=== PATIENT | male | born 1995 | race Caucasian/White ===

== ENCOUNTER 2016-06-14 16:07 | Inpatient (IN) | payer OTHER ==
[~2016-06-14] VITALS: Ht 182.9 cm; Wt 85.5 kg
[2016-06-14] MEDS ORDERED: GI COCKTAIL PO STA (16:35)
[2016-06-14] MEDS ORDERED: SODIUM CHLORIDE 0.9% 1000ML 1,000 ML IV STA (16:35)
[2016-06-14 17:02] LABS: BASO % 0.1 %; BASO ABS # 0.01 K/uL (0-0.2); COMPLETE YES; EOS % 3.7 %; HEMATOCRIT 48.3 % (42-52); IG% 0.3 %; LYMPH % 4.7 %; LYMPH ABS # 0.54 K/uL (1.2-3.4); MEAN CELL VOLUME 85.8 fL (80-100); MEAN CORPUSCULAR HEMOGLOBIN 31.8 pg (25-34); MEAN CORPUSCULAR HGB CONC 37.1 g/dl (32-36); MONO % 5.6 %; NEUT % 85.6 %; PLATELET COUNT 203 K/uL (130-400); RED BLOOD COUNT 5.63 M/uL (4.7-6.1); WHITE BLOOD COUNT 11.52 K/uL (4.8-10.8)
[2016-06-14] MEDS ORDERED: ALUMINUM/MAGNESIUM SUSP 30 ML UDC ONE (17:06)
[2016-06-14] MEDS ORDERED: LIDOCAINE HCL 2% VISC SOLN 20 ML UDC ONE (17:07)
[2016-06-14 17:20] LABS: BUN/CREATININE RATIO 19.5 (10-20); CALCIUM 9.4 mg/dl (8.5-10.1); CREATININE 1.1 mg/dl (0.60-1.40); POTASSIUM 3.8 mmol/L (3.5-5.1)
[2016-06-14 17:23] LABS: ALB/GLOB RATIO 1.5 (0.9-2)
[2016-06-14 17:41] LABS: URINE APPEARANCE CLEAR (CLEAR); URINE BILIRUBIN NEG (NEG); URINE COLOR DK YELLOW; URINE NITRITE NEG (NEG); URINE SPECIFIC GRAVITY 1.035 (1.000-1.030); UROBILINOGEN NEG (NEG); ZZUR CULT IF INDIC CLEAN CATCH NO
[2016-06-14 17:43] LABS: MANUAL MICROSCOPIC REQUIRED? NO; REVIEW REQ? NO
--- NOTE | 2016-06-14 18:17 | DIAGNOSTIC IMAGING REPORT ---
CHEST AND ABDOMEN 2 VIEWS HISTORY: epigastric abdominal pain COMPARISON: FINDINGS: The lungs are clear. The cardiomediastinal silhouette is within normal limits. There is no pneumoperitoneum or pneumatosis. Suture material within the right lower quadrant. Mildly dilated air and fluid-filled loop of small bowel within the midabdomen. This contains a few small fluid levels. Multiple small fluid level seen within the colon. No pathologic calcifications. IMPRESSION: A single mildly dilated loop of small bowel within the midabdomen. This contains a fluid/fluid level. There are multiple small fluid levels seen throughout the colon. These findings can be seen in the setting of a gastroenteritis or partial small bowel obstruction. Electronically signed by: Emeterio Phillip M.D. 06/14/2016 6:15 PM Dictated Date/Time: 06/14/2016 6:13 PM
[2016-06-14] MEDS ORDERED: OPTIRAY 320 IV PRN (18:45)
--- NOTE | 2016-06-14 19:49 | DIAGNOSTIC IMAGING REPORT ---
ABDOMEN AND PELVIS CT WITH IV CONTRAST CT DOSE: 352.50 mGy.cm HISTORY: Generalized abdominal pain, air fluid levels on xray, r/o obstruction TECHNIQUE: Multiaxial CT images of the abdomen and pelvis were performed following the use of intravenous contrast. COMPARISON STUDY: Chest and abdomen series 06/14/2016. FINDINGS: The lung bases are clear. No pneumoperitoneum. No pneumatosis. No fractures within the visualized osseous structures. The liver, gallbladder, pancreas, adrenal glands, and left kidney are unremarkable. There is a 5 mm hypodense lesion within the upper pole the right kidney. This is too small to characterize but favors a cyst. No hydronephrosis. No retroperitoneal lymphadenopathy. The spleen is top normal in size measuring 12.5 cm in length. The bladder is unremarkable. No pelvic free fluid. Suture material at the base of the cecum suggesting prior appendectomy. Multiple mildly dilated air and fluid-filled loop of proximal to mid small bowel. The distal small bowel appears to be decompressed. However, there is no clear transition point identified at this time. No bowel wall thickening. The colon is partially fluid-filled. Distended proximal small bowel loops measure up to 3.4 cm diameter. IMPRESSION: 1. Multiple mildly dilated air and fluid-filled loops of proximal to mid small bowel. The distal small bowel is decompressed. There is no clear transition point at this time. Therefore, this could represent a partial small bowel obstruction versus a gastroenteritis. The stomach is also mildly distended and fluid-filled. Consider follow-up CT or serial KUBs to assess for a developing small bowel obstruction. 2. Prior appendectomy. 3. The spleen is top normal in size. Electronically signed by: Emeterio Phillip M.D. 06/14/2016 7:47 PM Dictated Date/Time: 06/14/2016 7:38 PM
[2016-06-14] MEDS ORDERED: MoRPHine SULFATE 2 MG/ML CARP IV PRN (20:30)
[2016-06-14] MEDS ORDERED: ONDANSETRON INJ 2 MG/ML 2 ML VIAL IV PRN (20:30)
--- NOTE | 2016-06-14 20:37 | History and Physical ---
History & Physical Date & Time of Service: Jun 14, 2016 at 20:32 Chief Complaint: Abdominal Pain Primary Care Physician: No Doctor, Assigned History of Present Illness Source: patient 20 y/o M w/Hx appendectomy only - developed abdominal pain and nausea over the past [address] abdomen was obtained in the ER and is suspicious for a partial SBO. At present he denies constipation, diarrhea or vomiting. He denies fevers and denies previous bowel obstructions. He was able top eat a small amount of yogurt AM but had a meal last > 24hrs prior. Past Medical/Surgical History Appendectomy Family History Both parents alive and well Social History Does not smoke - drinks 2xwk - civil engineering student at [employer] Smoking Status: Never Smoker Alcohol Use: socially Marital Status: single Occupational Status: student Allergies Coded Allergies: No Known Allergies (Unverified , 06/14/16) Home Medications No Active Prescriptions or Reported Meds Review of Systems Constitutional: No chills, No fever, No sweats Eyes: No eye pain, No worsening of vision ENT: No hearing loss, No nasal symptoms, No unusual epistaxis Respiratory: No cough, No sputum, No wheezing Cardiovascular: No PND, No chest pain, No orthopnea Abdomen: + nausea, + pain, No vomiting Musculoskeletal: No joint pain, No muscle pain Genitourinary - Male: No dysuria, No hematuria Neurologic: No memory loss, No paralysis, No weakness Psychiatric: No depression symptoms Endocrine: No fatigue Hematologic / Lymphatic: No abnormal bleeding/bruising Integumentary: No rash Allergic / Immunologic: No environmental allergies Physical Exam Vital Signs Date Time Temp Pulse Resp B/P Pulse Ox O2 Delivery O2 Flow Rate FiO2 06/14/16 19:44 74 16 131/78 99 06/14/16 17:55 74 16 121/67 97 06/14/16 16:23 141/80 06/14/16 16:17 36.7 118 18 96 Room Air General Appearance: WD/WN, no apparent distress Head: normocephalic, atraumatic Eyes: normal inspection, EOMI ENT: normal ENT inspection, hearing grossly normal, pharynx normal Neck: supple, no JVD Respiratory/Chest: chest non-tender, no accessory muscle use Cardiovascular: regular rate, rhythm, no edema, no gallop Abdomen/GI: + pertinent finding (Mild diffuse tenderness - hypoactive BS) Back: normal inspection Extremities/Musculoskelatal: normal inspection, no calf tenderness, normal capillary refill, no pedal edema, normal range of motion Neurologic/Psych: electrophysiology tech II-XII nml as tested, no motor/sensory deficits, alert, normal mood/affect, normal reflexes, oriented x 3 Skin: normal color, warm/dry, no rash Lymphatic: no adenopathy Diagnostics Laboratory Results Results Past 24 Hours Test 06/14/16 00:00 06/14/16 16:40 Range/Units Urine Color DK YELLOW Urine Appearance CLEAR CLEAR Urine pH 6.0 4.5-7.5 Urine Specific [place] 1.035 1.000-1.030 Urine Protein NEG NEG Urine Glucose (UA) NEG NEG Urine Ketones 2+ NEG Urine Occult Blood NEG NEG Urine Nitrite NEG NEG Urine Bilirubin NEG NEG Urine Urobilinogen NEG NEG Urine Leukocyte Esterase NEG NEG White Blood Count 11.52 4.8-10.8 K/uL Red Blood Count 5.63 4.7-6.1 M/uL Hemoglobin 17.9 14.0-18.0 g/dL Hematocrit 48.3 42-52 % Mean Corpuscular Volume 85.8 80-100 fL Mean Corpuscular Hemoglobin 31.8 25-34 pg Mean Corpuscular Hemoglobin Concent 37.1 32-36 g/dl Platelet Count 203 130-400 K/uL Mean Platelet Volume 9.0 7.4-10.4 fL Neutrophils (%) (Auto) 85.6 % Lymphocytes (%) (Auto) 4.7 % Monocytes (%) (Auto) 5.6 % Eosinophils (%) (Auto) 3.7 % Basophils (%) (Auto) 0.1 % Neutrophils # (Auto) 9.87 1.4-6.5 K/uL Lymphocytes # (Auto) 0.54 1.2-3.4 K/uL Monocytes # (Auto) 0.64 0.11-0.59 K/uL Eosinophils # (Auto) 0.43 0-0.5 K/uL Basophils # (Auto) 0.01 0-0.2 K/uL RDW Standard Deviation 38.4 36.4-46.3 fL RDW Coefficient of Variation 12.2 11.5-14.5 % Immature Granulocyte % (Auto) 0.3 % Immature Granulocyte # (Auto) 0.03 0.00-0.02 K/uL Sodium Level 138 136-145 mmol/L Potassium Level 3.8 3.5-5.1 mmol/L Chloride Level 104 98-107 mmol/L Carbon Dioxide Level 23 21-32 mmol/L Anion Gap 11.0 3-11 mmol/L Blood Urea Nitrogen 22 7-18 mg/dl Creatinine 1.10 0.60-1.40 mg/dl Est Creatinine Clear Calc Drug Dose 116.6 ml/min Estimated GFR () 110.6 Estimated GFR (Non- 95.5 BUN/Creatinine Ratio 19.5 10-20 Random Glucose 88 70-99 mg/dl Calcium Level 9.4 8.5-10.1 mg/dl Total Bilirubin 1.5 0.2-1 mg/dl Aspartate Amino Transf (AST/SGOT) 27 15-37 U/L Alanine Aminotransferase (ALT/SGPT) 42 12-78 U/L Alkaline Phosphatase 29 45-117 U/L Total Protein 7.6 6.4-8.2 gm/dl Albumin 4.5 3.4-5.0 gm/dl Globulin 3.1 2.5-4.0 gm/dl Albumin/Globulin Ratio 1.5 0.9-2 Lipase 143 73-393 U/L Diagnostic Radiology CT abdomen 1. Multiple mildly dilated air and fluid-filled loops of proximal to mid small bowel. The distal small bowel is decompressed. There is no clear transition point at this time. Therefore, this could represent a partial small bowel obstruction versus a gastroenteritis. The stomach is also mildly distended and fluid-filled. 2. Prior appendectomy. 3. The spleen is top normal in size. Impression Assessment and Plan 20 y/o M w/Hx appendectomy only - developed abdominal pain and nausea over the past [address] abdomen was obtained in the ER and is suspicious for a partial SBO. At present he denies constipation, diarrhea or vomiting. He denies fevers and denies previous bowel obstructions. Pt will be observed overnight - kept NPO and provided with aggressive IVF. We will obtain a KUB for f/u AM and consider an NGT with worsening. Surgery will be consulted AM. Heparin prophylaxis - full code Total time for this admit including review of records, labs, imaging - discussion with pt and ER MD 25 min Level of Care Med/Surg Resuscitation Status FULL RESUSCITATION VTE Prophylaxis VTE Risk Assessment Done? Y/N: Yes Risk Level: Low Given or contraindicated: Unfractionated heparin SQ
[2016-06-14 21:45] VITALS: BP 119/81; PULSE 79; TEMP 37.4; O2SAT 99
[2016-06-14 21:50] VITALS: BP 119/81; PULSE 79; TEMP 37.4; O2SAT 99; Ht 182.9 cm; Wt 85.5 kg
[2016-06-14 22:10] VITALS: O2SAT 99
[2016-06-14 22:25] LABS: PROTHROMBIN TIME (PATIENT) 10.3 SECONDS (9.0-12.0)
[2016-06-14] MEDS: D5NSS + 20MEQ KCL 1,000 ML IV SCH (22:46)
[2016-06-14 23:17] VITALS: BP 119/62; PULSE 85; TEMP 37.5; O2SAT 96
--- NOTE | 2016-06-15 00:01 | EMERGENCY ROOM VISIT NOTE ---
History First contact with patient: 16:20 Chief Complaint: ABDOMINAL PAIN Stated Complaint: SBO Nursing Triage Summary: Pt c/o mid upper abd pain "sharp" since last night. Denies n/v/d Ibuprofen at 1000 unable to get BP in triage. History of Present Illness The patient is a 20 year old male who presents to the Emergency Room with complaints of abdominal pain which began suddenly last night. The patient reports that the pain woke him up from sleeping last night in the middle of the night. He states that since then, he has had persistent pain in his upper abdomen. He has associated lightheadedness and dizziness. He does report that he has had a decreased appetite and has not been able to eat anything today. He denies nausea/vomiting or changes in bowel movements. He does report that his pain worsens with any eating. He states the pain is sharp and he rates his discomfort an 8/10. He states that the last time he had pain this severe, it was due to his appendix. He reports a personal history of appendectomy any family history of gallbladder disease. He denies any recent diet changes. He took ibuprofen for his discomfort without relief. He denies any fevers/chills, chest pain or shortness of breath. Review of Systems A complete 10-point Review of Systems was discussed with the patient, with pertinent positives and negatives listed in the History of Present Illness. All remaining Review of Systems questions can be considered negative unless otherwise specified. Past Medical/Surgical History Medical Problems: (1) SBO (small bowel obstruction) Social History Smoking Status: Never Smoker Marital Status: single Occupation Status: student Current/Historical Medications No Active Prescriptions or Reported Meds Allergies Coded Allergies: No Known Allergies (Unverified , 06/14/16) Physical Exam Vital Signs Date Time Temp Pulse Resp B/P Pulse Ox O2 Delivery O2 Flow Rate FiO2 06/14/16 19:44 74 16 131/78 99 06/14/16 17:55 74 16 121/67 97 06/14/16 16:23 141/80 06/14/16 16:17 36.7 118 18 96 Room Air Pain Rating (0-10): 0 Physical Exam VITALS: Vitals are noted on the nurse's note and reviewed by myself. Vital signs stable. GENERAL: This is a 20-year-old male, in no acute distress, nondiaphoretic, well- developed well-nourished. SKIN: Capillary reflex less than 2 seconds. HEENT: Normocephalic. PERRLA. EOMI. Nares patent. Mucous membranes moist. Neck is supple without nuchal rigidity. HEART: Regular rate and rhythm without murmurs gallops or rubs. LUNGS: Clear to auscultation bilaterally without wheezes, rales or rhonchi. ABDOMEN: Positive bowel sounds x 4. Moderate tenderness to the epigastric region and. Umbilical region. Chun sign negative. No guarding or rebound tenderness. NEURO: Patient was alert and oriented to person place and time. Medical Decision & Procedures ER Provider Diagnostic Interpretation: CHEST AND ABDOMEN 2 VIEWS FINDINGS: The lungs are clear. The cardiomediastinal silhouette is within normal limits. There is no pneumoperitoneum or pneumatosis. Suture material within the right lower quadrant. Mildly dilated air and fluid-filled loop of small bowel within the midabdomen. This contains a few small fluid levels. Multiple small fluid level seen within the colon. No pathologic calcifications. IMPRESSION: A single mildly dilated loop of small bowel within the midabdomen. This contains a fluid/fluid level. There are multiple small fluid levels seen throughout the colon. These findings can be seen in the setting of a gastroenteritis or partial small bowel obstruction. ABDOMEN AND PELVIS CT WITH IV CONTRAST FINDINGS: The lung bases are clear. No pneumoperitoneum. No pneumatosis. No fractures within the visualized osseous structures. The liver, gallbladder, pancreas, adrenal glands, and left kidney are unremarkable. There is a 5 mm hypodense lesion within the upper pole the right kidney. This is too small to characterize but favors a cyst. No hydronephrosis. No retroperitoneal lymphadenopathy. The spleen is top normal in size measuring 12.5 cm in length. The bladder is unremarkable. No pelvic free fluid. Suture material at the base of the cecum suggesting prior appendectomy. Multiple mildly dilated air and fluid-filled loop of proximal to mid small bowel. The distal small bowel appears to be decompressed. However, there is no clear transition point identified at this time. No bowel wall thickening. The colon is partially fluid-filled. Distended proximal small bowel loops measure up to 3.4 cm diameter. IMPRESSION: 1. Multiple mildly dilated air and fluid-filled loops of proximal to mid small bowel. The distal small bowel is decompressed. There is no clear transition point at this time. Therefore, this could represent a partial small bowel obstruction versus a gastroenteritis. The stomach is also mildly distended and fluid-filled. Consider follow-up CT or serial KUBs to assess for a developing small bowel obstruction. 2. Prior appendectomy. 3. The spleen is top normal in size. Laboratory Results 06/14/16 16:40 Red Blood Count 5.63, Mean Corpuscular Volume 85.8, Mean Corpuscular Hemoglobin 31.8, Mean Corpuscular Hemoglobin Concent 37.1, Mean Platelet Volume 9.0, Neutrophils (%) (Auto) 85.6, Lymphocytes (%) (Auto) 4.7, Monocytes (%) (Auto) 5.6, Eosinophils (%) (Auto) 3.7, Basophils (%) (Auto) 0.1, Neutrophils # (Auto) 9.87, Lymphocytes # (Auto) 0.54, Monocytes # (Auto) 0.64, Eosinophils # (Auto) 0.43, Basophils # (Auto) 0.01 06/14/16 16:40 Test 06/14/16 00:00 06/14/16 16:40 Urine Color DK YELLOW Urine Appearance CLEAR (CLEAR) Urine pH 6.0 (4.5-7.5) Urine Specific [place] 1.035 (1.000-1.030) Urine Protein NEG (NEG) Urine Glucose (UA) NEG (NEG) Urine Ketones 2+ (NEG) Urine Occult Blood NEG (NEG) Urine Nitrite NEG (NEG) Urine Bilirubin NEG (NEG) Urine Urobilinogen NEG (NEG) Urine Leukocyte Esterase NEG (NEG) White Blood Count 11.52 K/uL (4.8-10.8) Red Blood Count 5.63 M/uL (4.7-6.1) Hemoglobin 17.9 g/dL (14.0-18.0) Hematocrit 48.3 % (42-52) Mean Corpuscular Volume 85.8 fL (80-100) Mean Corpuscular Hemoglobin 31.8 pg (25-34) Mean Corpuscular Hemoglobin Concent 37.1 g/dl (32-36) Platelet Count 203 K/uL (130-400) Mean Platelet Volume 9.0 fL (7.4-10.4) Neutrophils (%) (Auto) 85.6 % Lymphocytes (%) (Auto) 4.7 % Monocytes (%) (Auto) 5.6 % Eosinophils (%) (Auto) 3.7 % Basophils (%) (Auto) 0.1 % Neutrophils # (Auto) 9.87 K/uL (1.4-6.5) Lymphocytes # (Auto) 0.54 K/uL (1.2-3.4) Monocytes # (Auto) 0.64 K/uL (0.11-0.59) Eosinophils # (Auto) 0.43 K/uL (0-0.5) Basophils # (Auto) 0.01 K/uL (0-0.2) RDW Standard Deviation 38.4 fL (36.4-46.3) RDW Coefficient of Variation 12.2 % (11.5-14.5) Immature Granulocyte % (Auto) 0.3 % Immature Granulocyte # (Auto) 0.03 K/uL (0.00-0.02) Prothrombin Time 10.3 SECONDS (9.0-12.0) Prothromb Time International Ratio 1.0 (0.9-1.1) Activated Partial Thromboplast Time 25.9 SECONDS (21.0-31.0) Partial Thromboplastin Ratio 1.0 Anion Gap 11.0 mmol/L (3-11) Est Creatinine Clear Calc Drug Dose 116.6 ml/min Estimated GFR () 110.6 Estimated GFR (Non- 95.5 BUN/Creatinine Ratio 19.5 (10-20) Calcium Level 9.4 mg/dl (8.5-10.1) Total Bilirubin 1.5 mg/dl (0.2-1) Aspartate Amino Transf (AST/SGOT) 27 U/L (15-37) Alanine Aminotransferase (ALT/SGPT) 42 U/L (12-78) Alkaline Phosphatase 29 U/L (45-117) Total Protein 7.6 gm/dl (6.4-8.2) Albumin 4.5 gm/dl (3.4-5.0) Globulin 3.1 gm/dl (2.5-4.0) Albumin/Globulin Ratio 1.5 (0.9-2) Lipase 143 U/L (73-393) Medications Administered Medications (Trade) Dose Ordered Sig/Cee Route Start Time Stop Time Status Last Admin Dose Admin Sodium Chloride (Nss 1000ml) 1,000 ml @ 999 mls/hr Q1H1M STAT IV 06/14/16 16:35 06/14/16 17:35 DC 06/14/16 16:35 999 MLS/HR Al Hydroxide/Mg Hydroxide (Maalox Susp) 30 ml STK-MED ONCE .ROUTE 06/14/16 17:06 06/14/16 17:08 DC 06/14/16 17:12 30 ML Lidocaine HCl (Viscous Lidocaine 2% Soln) 20 ml STK-MED ONCE .ROUTE 06/14/16 17:07 06/14/16 17:08 DC 06/14/16 17:12 20 ML Medical Decision Differential diagnosis includes cholecystitis, gastroenteritis, colitis, small bowel obstruction, renal calculus, pyelonephritis, among others. The patient was evaluated as above. Labs were drawn and IV access was obtained. Imaging studies were performed and read by radiology as above. The patient was medicated with 1 L normal saline solution and a GI cocktail. The patient was reassessed multiple times during their stay in the emergency department and remained in stable condition. The patient is a 20-year-old male who presents today complaining of epigastric and padmini-umbilical abdominal pain. Labs revealed a mild leukocytosis. No significant anemia or electrolyte abnormalities. Lipase was not elevated. Urinalysis was not suggestive of infection. Abdominal series was performed and did show evidence of a possible small bowel obstruction. CT was then performed to confirm this diagnosis and again showed evidence of possible small bowel obstruction. I reassessed the patient and he was having continued discomfort. At this time, I do feel that the patient should be admitted for serial examinations and further evaluation of a possible small bowel traction. The patient was agreeable to this. Consultation was made with the hospitalist. The patient's case was reviewed with Dr. Yates, ED attending physician, who agreed with my assessment and treatment plan. Based on the patient's presentation, lab results, and imaging studies, I feel the patient is stable for outpatient treatment. Discharge instructions were reviewed with the patient. The patient verbalized understanding of my assessment and treatment plan and was discharged home in good condition. Impression Primary Impression: Small bowel obstruction Departure Information Dispostion Still a Patient Condition FAIR Prescriptions No Active Prescriptions or Reported Meds Referrals No Doctor, Assigned (PCP) Forms HOME CARE DOCUMENTATION FORM, IMPORTANT VISIT INFORMATION Patient Instructions My [facility]
[2016-06-15] MEDS ORDERED: LORAZEPAM INJ 0.5 MG in SYRINGE 0.25 ML IV ONE (00:15)
[2016-06-15] MEDS: D5NSS + 20MEQ KCL 1,000 ML IV SCH ×3 (05:17→22:20)
[2016-06-15] MEDS: HEPARIN SOD 5000 UNIT/0.5 ML CARP SQ SCH ×3 (05:17→22:00)
[2016-06-15 07:32] VITALS: BP 106/68; PULSE 66; TEMP 36.7; O2SAT 99
--- NOTE | 2016-06-15 09:22 | DIAGNOSTIC IMAGING REPORT ---
KUB HISTORY: Small bowel obstruction. Generalized abdominal pain. COMPARISON: Abdomen and pelvis CT 06/14/2016. Abdominal series 06/14/2016. FINDINGS: There are few mildly dilated proximal loops of small bowel within the left upper quadrant. These measure up to 3.6 cm in diameter. The distal small bowel remains gas filled and normal in caliber. There is gas within the nondistended colon and rectum. The stomach is decompressed. The lung bases are clear. No renal calculi. No ureteral calculi. No pneumoperitoneum or pneumatosis. IMPRESSION: Single dilated loop of small bowel to the left upper quadrant. There remains gas and stool throughout the colon/rectum. Again, this could represent a low-grade partial small bowel obstruction versus a gastroenteritis. Electronically signed by: Emeterio Phillip M.D. 06/15/2016 9:20 AM Dictated Date/Time: 06/15/2016 9:18 AM
--- NOTE | 2016-06-15 13:39 | Progress Note ---
Subjective Date of Service: Jun 15, 2016. Subjective Pt evaluation today including: conversation w/ patient, conversation w/ family (mother at bedside), physical exam, chart review, lab review, review of studies (CT abd, x-rays abd ), review of inpatient medication list Pain: epigastric - but improved PO Intake: tolerating sips of clears Voiding: no voiding problems Surprisingly he never had vomiting with this illness. No fevers but had been having chills. +flatus most of this am without any diarrhea. Feels better. Problem List Medical Problems: (1) Small bowel obstruction Status: Acute Review of Systems Constitutional: No chills, No fever Respiratory: + shortness of breath Cardiac: + chest pain Abdomen: + pain, No GI bleeding, No diarrhea, No nausea, No vomiting Objective Vital Signs Date Time Temp Pulse Resp B/P Pulse Ox O2 Delivery O2 Flow Rate FiO2 06/15/16 08:07 Room Air 06/15/16 07:32 36.7 66 14 106/68 99 Room Air 06/14/16 23:51 Room Air 06/14/16 23:17 37.5 85 14 119/62 96 Room Air 06/14/16 22:10 99 Room Air 06/14/16 21:50 37.4 79 16 119/81 99 Room Air 06/14/16 21:45 37.4 79 20 119/81 99 Room Air 06/14/16 21:05 78 128/78 98 06/14/16 19:44 74 16 131/78 99 06/14/16 17:55 74 16 121/67 97 06/14/16 16:23 141/80 06/14/16 16:17 36.7 118 18 96 Room Air Physical Exam General Appearance: no apparent distress ENT: pharynx normal Neck: no JVD Respiratory/Chest: lungs clear, no respiratory distress, no accessory muscle use Cardiovascular: regular rate, rhythm, no gallop, no murmur Abdomen: normal bowel sounds, soft, no organomegaly, + tenderness (epigastric area - mild) Extremities: no pedal edema Laboratory Results Last 24 Hours Test 06/14/16 16:40 White Blood Count 11.52 K/uL Red Blood Count 5.63 M/uL Hemoglobin 17.9 g/dL Hematocrit 48.3 % Mean Corpuscular Volume 85.8 fL Mean Corpuscular Hemoglobin 31.8 pg Mean Corpuscular Hemoglobin Concent 37.1 g/dl Platelet Count 203 K/uL Mean Platelet Volume 9.0 fL Neutrophils (%) (Auto) 85.6 % Lymphocytes (%) (Auto) 4.7 % Monocytes (%) (Auto) 5.6 % Eosinophils (%) (Auto) 3.7 % Basophils (%) (Auto) 0.1 % Neutrophils # (Auto) 9.87 K/uL Lymphocytes # (Auto) 0.54 K/uL Monocytes # (Auto) 0.64 K/uL Eosinophils # (Auto) 0.43 K/uL Basophils # (Auto) 0.01 K/uL RDW Standard Deviation 38.4 fL RDW Coefficient of Variation 12.2 % Immature Granulocyte % (Auto) 0.3 % Immature Granulocyte # (Auto) 0.03 K/uL Prothrombin Time 10.3 SECONDS Prothromb Time International Ratio 1.0 Activated Partial Thromboplast Time 25.9 SECONDS Partial Thromboplastin Ratio 1.0 Sodium Level 138 mmol/L Potassium Level 3.8 mmol/L Chloride Level 104 mmol/L Carbon Dioxide Level 23 mmol/L Anion Gap 11.0 mmol/L Blood Urea Nitrogen 22 mg/dl Creatinine 1.10 mg/dl Est Creatinine Clear Calc Drug Dose 116.6 ml/min Estimated GFR () 110.6 Estimated GFR (Non- 95.5 BUN/Creatinine Ratio 19.5 Random Glucose 88 mg/dl Calcium Level 9.4 mg/dl Total Bilirubin 1.5 mg/dl Aspartate Amino Transf (AST/SGOT) 27 U/L Alanine Aminotransferase (ALT/SGPT) 42 U/L Alkaline Phosphatase 29 U/L Total Protein 7.6 gm/dl Albumin 4.5 gm/dl Globulin 3.1 gm/dl Albumin/Globulin Ratio 1.5 Lipase 143 U/L Assessment and Plan 20yo male with: 1. pSBO vs gastroenteritis - favor the latter, as we are seeing copious #'s of viral gastroenteritis in the last 1-2 months. If he did in fact have pSBO it would be from adhesions from previous appendectomy. Either way the management is the same. He is improving. Restart IVF. Allow clears as tolerated. Add pepcid IV for gastritis. 2. FEN - D5NS with KCL. Clears. BMP in am. 3. minimally elevated total bilirubin - repeat in AM. Gilbert's? 4. DVT proph - heparin TID. mother updated keep until tomorrow Continued [facility] stay due to: inadequate po fluid intake, multiple IV medications needed Discharge planning: home
[2016-06-15] MEDS: FAMOTIDINE IV INJ 20 MG in DEXTROSE 5% 100ML 100 ML IV SCH (14:04)
[2016-06-15 15:20] VITALS: BP 108/66; PULSE 58; TEMP 36.6; O2SAT 99
--- NOTE | 2016-06-15 16:07 | SURGICAL CONSULTATION ---
DATE OF CONSULTATION: 06/15/2016 DATE OF CONSULTATION: 06/15/2016. HISTORY OF PRESENT ILLNESS: I have been asked by Dr. Vila to see this 20-year-old male who presented to the Emergency Room last evening with a complaint of abdominal pain. It began earlier in the day as more of a dull ache. It was located mostly in the upper abdomen in the midline. As the day progressed, the pain became more sharp. He had no appetite with this. He did not have nausea; however, there was no vomiting. He had no diarrhea or constipation. He had no melena or hematochezia. No dysuria or hematuria. He had some pain similar to this about 10 years ago with his appendectomy, but it is was not identical. He presented to the emergency room where a CT scan demonstrated multiple mildly dilated air fluid levels at the proximal and mid small bowel with decompression of the distal small bowel, but no clear transition point. He had a KUB today that showed 1 loop of very mildly dilated small bowel. He has been passing flatus since admission. His pain is now described as a 1/10. PAST MEDICAL HISTORY: Negative. PAST SURGICAL HISTORY: Appendectomy. MEDICATIONS: None. ALLERGIES: None. SOCIAL HISTORY: He does not use tobacco products and drinks alcohol occasionally. PHYSICAL EXAMINATION: GENERAL: Reveals a well-developed, well-nourished male who appears in no acute distress. VITAL SIGNS: Blood pressure 106/68, heart rate 66, respirations 14, temperature 36.7, pulse oximetry is 99% on room air. HEAD, EYES, EARS, NOSE, AND THROAT: Reveals the sclerae to be anicteric. Mucous membranes are moist. NECK: Supple, with no JVD and no cervical or supraclavicular adenopathy. BACK: Has no spinal or CVA tenderness. LUNGS: Clear. HEART: Regular. ABDOMEN: Has normoactive bowel sounds, soft, nondistended, nontender with no masses or hepatomegaly. EXTREMITIES: Reveal no edema. LABORATORY DATA: Reveals WBC 11.52, H&H 17.9 and 48.3 with a platelet count of 203,000. Sodium 138, potassium 3.8, chloride 104, CO2 23, BUN 22, creatinine 1.1, glucose 88. Bilirubin 1.5, AST 27, ALT 42, alkaline phosphatase 29, lipase 143. ASSESSMENT AND PLAN: This patient had abdominal pain that is now resolving. He is moving his bowels. I doubt bowel obstruction at this time. This may have been a viral syndrome. I do not feel that there is any need for surgical intervention at this time. We will follow with you. Thank you for allowing me to see this patient and participate in his care. CATHY
[2016-06-15 23:30] VITALS: BP 128/89; PULSE 61; TEMP 36.6; O2SAT 97
[2016-06-16] MEDS: FAMOTIDINE IV INJ 20 MG in DEXTROSE 5% 100ML 100 ML IV SCH (01:37)
[2016-06-16] MEDS: HEPARIN SOD 5000 UNIT/0.5 ML CARP SQ SCH (06:00)
[2016-06-16] MEDS: D5NSS + 20MEQ KCL 1,000 ML IV SCH (06:21)
[2016-06-16 07:13] VITALS: BP 112/72; PULSE 55; TEMP 36.3; O2SAT 99
[2016-06-16 08:53] LABS: BUN/CREATININE RATIO 5.4 (10-20); CALCIUM 8.7 mg/dl (8.5-10.1); CREATININE 0.93 mg/dl (0.60-1.40); MAGNESIUM 2.3 mg/dl (1.8-2.4); POTASSIUM 4.1 mmol/L (3.5-5.1)
--- NOTE | 2016-06-16 09:47 | Progress Note ---
Progress Note 06/16/16 [id number] S: doing well no abd pain, nausea, emesis had 1 stool this am - "mushy" tolerating clears O: VSS, no fever gen - nad abd - soft, NT, ND, BS+ A/P: probable viral GE - resolved. advance diet ok to d/c home instructions given Manish JONES MD
[2016-06-16] MEDS ORDERED: ONDA8TAB62 SL (09:48)
--- NOTE | 2016-06-16 09:57 | Discharge Instructions ---
Discharge Instructions Admission Reason for Admission: gastroenteritis ("stomach flu/bug") vs partial small bowel obstruction Discharge Discharge Diagnosis / Problem: probable viral gastroenteritis Discharge Goals Goal(s): Learn about illness, Diagnostic testing, Therapeutic intervention Activity Recommendations Activity Limitations: resume your previous activity . Instructions / Follow-Up Instructions / Follow-Up From Dr. Lamb - 1. consider taking mgun-hde-iitchgo zantac, pepcid, prilosec, etc (just pick one of the products) and take for about 1 week. 2. gradually advance your diet over the next 2-3 days; lots of fluids (gatorade , water, juice, etc). 3. may take zofran tablets every 8 hours as needed for nausea. 4. return to [facility] with any fever over 100.5 degrees, recurrent vomiting, recurrent abdominal pain, blood or mucous in the stool, etc. Current Hospital Diet Patient's current hospital diet: Full Liquid Diet Discharge Diet Recommended Diet: Full Liquid Diet (over the next 24 hours can gradually increase your diet; start with soft/bland foods; avoid alcohol, caffeinated beverages, fried foods, fast food, spicy foods) Procedures Procedures Performed: CAT scan of abdomen showing either gastroenteritis vs partial small bowel obstruction Pending Studies Studies pending at discharge: no School Instructions Return To School: 3 days (06/19/16) Additional Instructions: Leopoldo was hospitalized at [facility] from 06/14/16 to 06/16/16. Please excuse him from classes for these days. He may return to classes on 06/19/16. Medical Emergencies . Who to Call and When: Medical Emergencies: If at any time you feel your situation is an emergency, please call 911 immediately. . Non-Emergent Contact Non-Emergency issues call your: Primary Care Provider Call Non-Emergent contact if: temperature is above 100.5, your pain is concerning you, you have any medication questions . . "Provider Documentation" section prepared by Jeremy Lamb. VTE Core Measure Inpt VTE Proph given/why not?: Unfractionated heparin SQ
[2016-06-16 11:40] VITALS: BP 112/72; PULSE 55; TEMP 36.3; O2SAT 99
--- NOTE | 2016-06-16 20:16 | Discharge Summary ---
Discharge Summary Admission Date: Jun 14, 2016 at 20:32 Discharge Date: Jun 16, 2016 Discharge Disposition: Home Principal Diagnosis: abdominal pain, suspected viral gastroenteritis Problems/Secondary Diagnoses: h/o appendectomy Procedures: CT abd/pelvis with findings suggestive of gastroenteritis vs partial small bowel obstruction Consultations: Sammy He MD - general surgery Medication Reconciliation New Medications: Ondansetron Odt (Zofran Odt) 8 Mg Soltab 8 MG SL Q6H PRN for Nausea, #10 TAB 0 Refills Referrals At Discharge Follow up Referrals: Physician Referral - Within 1 Week @ [facility] with Lina Nam MD Discharge Exam Physical Exam: General Appearance: WD/WN, no apparent distress ENT: pharynx normal Neck: no JVD Respiratory/Chest: lungs clear, no respiratory distress, no accessory muscle use Cardiovascular: regular rate, rhythm, no gallop, no murmur, normal peripheral pulses Abdomen / GI: normal bowel sounds, non tender, soft, no organomegaly Extremities: no pedal edema Neurologic/Psychiatric: alert, oriented x 3 Skin: no rash Hospital Course HISTORY OF PRESENT ILLNESS: 20yo male with history of appendectomy only who presented with 1-2 days of abdominal pain. The pain was located in the epigastrium. He had associated nausea & anorexia but no vomiting or diarrhea. No fever, but had chills. A CT abdomen was obtained in the ER and was suggestive of gastroenteritis vs a partial SBO. HOSPITAL COURSE: Mr. Schneider was initially treated with bowel rest, IVF, and anti-emetics. He was seen in consult by general surgery and it was felt that his presentation was more consistent with a viral gastroenteritis process. He was restarted on clear liquid diet and advanced to full liquids prior to discharge; he had no intolerance to such. All GI symptoms including his abdominal pain fully resolved during his short stay. He passed flatus and stool prior to discharge. He was advised to advance his diet slowly over the 2-3 days following discharge. Total Time Spent: Less than 30 minutes This includes examination of the patient, discharge planning, medication reconciliation, and communication with other providers. Discharge Instructions Please refer to the electronic Patient Visit Report (Discharge Instructions) for additional information. Follow-Up see [facility] within 1 week Additional Copies To [facility]
== END 2016-06-16 13:38 | disposition home or self-care (01) | DRG 392 ==
LOC: ENRESERVDT → ENRESERVTM → C.EDB 16:09 → C.MSN 20:32
PROVIDERS: ADMIT Internal Medicine; ATTEND Internal Medicine
DX: A08.4 Viral intestinal infection, unspecified (principal); E80.7 Disorder of bilirubin metabolism, unspecified

== ENCOUNTER 2016-12-10 11:14 | Emergency (ER) | payer OTHER ==
[~2016-12-10 11:14] MED LIST: ONDA8TAB62 SL
[2016-12-10 11:16] VITALS: TEMP 36.8; Ht 185.4 cm
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
[2016-12-10 12:43] VITALS: BP 131/83; PULSE 76; O2SAT 98
== END 2016-12-10 12:44 | disposition home or self-care (01) ==
LOC: EDBD 11:14 → C.EDD 11:15
DX: S09.90XA Unspecified injury of head, initial encounter (principal); S01.01XA Laceration without foreign body of scalp, initial encounter; V43.52XA Car driver injured in collision with other type car in traffic accident, initial encounter; Y92.488 Other paved roadways as the place of occurrence of the external cause